=== PATIENT | male | born 1980 | race Caucasian/White ===

== ENCOUNTER 2024-08-07 07:04 | Observation (INO) ==
--- NOTE | 2024-08-07 07:27 | Emergency Department Note ---
History of Present Illness General Chief complaint: GI Assessment Stated complaint: BLOATING,WEAKNESS,LIGHTHEADED,DISORIENTED Time Seen by Provider: 08/07/24 07:11 History of Present Illness Maximum Pain Intensity: 4 This is a 44-year-old male that presents to the emergency department via private vehicle with complaints of "bloating, lightheadedness, disoriented, chest pressure". The patient states that around August 01 he began with abdominal bloating, diarrhea however over the past 2 days has been taking Gas-X and notes improvement of symptoms. However, he does note that today around 3 AM he began with some building pressure in the upper abdomen that he felt radiate into the chest and describes it as a chest pressure in the substernal region. He then began feeling a bit disoriented like he was lightheaded. No speech trouble. The patient notes history of similar eye which was evaluated here in the past but has never had any abdominal pain or bloating with the symptoms. Patient notes he is otherwise healthy. No pertinent past medical history. Does not take medicines on a regular basis. History of right sided hernia surgery in 1998 and left knee surgery. No known drug allergies. Patient does note that when he eats or drinks he is nauseated and then notes some discomfort and bloating in the abdomen. He notes decreased appetite over the past 2 days. Patient also notes recent dental extraction x 2 in the past few weeks resulting in oral antibiotics as well. Home Medications Medication Instructions Recorded Confirmed Type No Known Home Medications 08/07/24 08/07/24 History Allergies Allergy/AdvReac Type Severity Reaction Status Date / Time No Known Allergies Allergy Unverified 10/18/20 16:33 Past Med/Surg History Problem List Lightheadedness (Acute) Abdominal pain, epigastric (Acute) Diarrhea (Acute) Medical History Mild intermittent asthma Organic erectile dysfunction Essential hypertension Obstructive sleep apnea Fracture of tibial plafond Talus fracture T12 compression fracture Calcaneal fracture Hernia Surgical History (Updated 08/07/24 @ 14:51 by Dorys Louise PA-C) H/O inguinal hernia repair History of right knee surgery ORIF fracture H/O colonoscopy Social History Smoking Status: Never smoker Do You Dip or Chew Tobacco: Yes; Hx Alcohol Use: No Hx Substance Use: No Preferred Language: Occitan Feels Safe at Home: Yes Review of Systems A total of 10 systems reviewed and were otherwise negative Physical Exam Vital Signs Vital Signs - 24 hr 08/07/24 07:08 08/07/24 08:34 08/07/24 09:30 Temperature 36.0 C L Temperature Source Temporal Artery Scan Pulse Rate 89 81 73 Pulse Rate [Right Finger] Pulse Rate from SpO2 Sensor 72 Respiratory Rate 18 21 Respiratory Effort / Characteristics Respiratory Depth Respiratory Pattern Blood Pressure 167/112 H 129/82 Blood Pressure [Left Arm] Blood Pressure Mean 130 97 Blood Pressure Mean [Left Arm] Blood Pressure Position Sitting Pulse Oximetry 98 99 Oxygen Delivery Method Sepsis Recent Fever Within 48 Hours No Sepsis New/Unexplained Change in Mental Status No Sepsis Action Taken by Nursing No Action Required 08/07/24 09:57 08/07/24 10:30 08/07/24 10:57 Temperature Temperature Source Pulse Rate 72 77 Pulse Rate [Right Finger] 72 Pulse Rate from SpO2 Sensor 78 Respiratory Rate 16 21 15 Respiratory Effort / Characteristics Non-Labored Spontaneous Respiratory Depth Normal Respiratory Pattern Regular Blood Pressure 139/104 H Blood Pressure [Left Arm] 157/87 H Blood Pressure Mean 115 Blood Pressure Mean [Left Arm] 110 Blood Pressure Position Pulse Oximetry 97 98 98 Oxygen Delivery Method Room Air Sepsis Recent Fever Within 48 Hours Sepsis New/Unexplained Change in Mental Status Sepsis Action Taken by Nursing 08/07/24 11:01 08/07/24 11:30 08/07/24 12:38 Temperature Temperature Source Pulse Rate 66 70 Pulse Rate [Right Finger] Pulse Rate from SpO2 Sensor 67 Respiratory Rate 16 Respiratory Effort / Characteristics Respiratory Depth Respiratory Pattern Blood Pressure 125/84 136/88 Blood Pressure [Left Arm] Blood Pressure Mean 98 104 Blood Pressure Mean [Left Arm] Blood Pressure Position Pulse Oximetry 97 Oxygen Delivery Method Sepsis Recent Fever Within 48 Hours Sepsis New/Unexplained Change in Mental Status Sepsis Action Taken by Nursing VITAL SIGNS - Vital signs and nursing notes were reviewed. Stable and afebrile, hypertensive. GENERAL -44-year-old male appearing his stated age who is in no acute distress. Communicates well with provider and answers questions appropriately. SKIN - Without rashes. No meningeal or petechial rash. Mildly diaphoretic. HEAD - NC/AT. EYES - PERRL with EOMI bilaterally. Sclera anicteric. EARS - No deformities of external structures noted on gross examination bilaterally. NOSE - Midline and without cyanosis. No epistaxis or purulent drainage noted. MOUTH/OROPHARYNX - Without perioral cyanosis. NECK - Neck with FROM. No nuchal rigidity. LUNGS - CTA CARDIAC - RRR ABDOMEN - Abdominal contour normal without pulsations or visible masses. BS normoactive all four quadrants. There is mild epigastric abdominal tenderness. No palpable masses, hepatosplenomegaly, or ascites noted. EXTREMITIES - No clubbing or peripheral cyanosis. +5/5 strength noted in UE/LE bilaterally. NEUROLOGIC - Cranial nerves II through XII grossly intact. PSYCH -alert, oriented and pleasant on exam. Course Administered Medications Discontinued Medications Sodium Chloride (Nss) 1,000 mls @ 999 mls/hr IV .Q1H1M ONE Stop: 08/07/24 10:08 Last Infusion: 08/07/24 10:36 Dose: Infused Documented By: Admin: 08/07/24 09:27 Dose: 999 mls/hr Documented By: Famotidine (Pepcid 20mg Iv Push) 20 mg in 5 mls @ 2.5 mls/min IV NOW STA Stop: 08/07/24 09:47 Last Admin: 08/07/24 09:58 Dose: 2.5 mls/min Documented By: BETSY Ioversol (Optiray 320 125ml) 119 ml IV ONCE ONE Stop: 08/07/24 08:52 Last Admin: 08/07/24 08:52 Dose: 119 ml Documented By: SHAWNEE Medical Decision Making Laboratory Data 08/07/24 07:45 08/07/24 07:45 Lab Results 08/07/24 08/07/24 08/07/24 Range/Units 07:45 07:50 09:35 WBC 5.62 (4.8-10.8) K/ul RBC 5.15 (4.70-6.10) M/uL Hgb 15.5 (14.0-18.0) g/dl Hct 45.2 (42.0-52.0) % MCV 87.8 (80.0-100.0) fL MCH 30.1 (25.0-34.0) pg MCHC 34.3 (32.0-36.0) g/dL RDW Std Deviation 38.2 (36.4-46.3) fL RDW Coeff of Onel 11.8 (11.5-14.5) % Plt Count 177 (130-400) K/uL MPV 9.6 (9.4-12.4) fL Immature Gran % (Auto) 0.5 % Neut % (Auto) 57.0 % Lymph % (Auto) 29.5 % [place] % (Auto) 9.1 % Eos % (Auto) 3.2 % Baso % (Auto) 0.7 % Neut # (Auto) 3.20 (1.40-6.50) K/uL Lymph # (Auto) 1.66 (1.20-3.40) K/uL [place] # (Auto) 0.51 (0.11-0.59) K/uL Eos # (Auto) 0.18 (0.00-0.50) K/uL Baso # (Auto) 0.04 (0.00-0.20) K/uL Immature Gran # (Auto) 0.03 (0.01-0.20) K/uL PT Cancelled 11.3 INR Cancelled 1.0 APTT Cancelled 28 PTT Ratio Cancelled 1.0 Sodium 139 (136-145) mmol/L Potassium 3.6 (3.5-5.1) mmol/L Chloride 102 (98-107) mmol/L Carbon Dioxide 31 (21-32) mmol/L Anion Gap 6 (3-11) BUN 20 (6-23) mg/dl Creatinine 0.99 (0.6-1.4) mg/dl Est Cr Clr Drug Dosing 131.3 ml/min eGFR 96.93 BUN/Creatinine Ratio 20.2 H (10-20) Glucose 84 (70-99(Fasting)) mg/dl Calcium 9.2 (8.6-10.3) mg/dl Magnesium 1.9 (1.7-2.4) mg/dl Total Bilirubin 1.4 H (0.2-1.0) mg/dl AST 25 (13-39) U/L ALT 30 (7-52) U/L Alkaline Phosphatase 57 (34-104) U/L Troponin I High Sens 3.8 (0-20) pg/ml Total Protein 7.9 (6.0-8.3) gm/dl Albumin 4.6 (3.4-5.0) gm/dl Globulin 3.3 (2.5-4.0) gm/dl Albumin/Globulin Ratio 1.4 (0.9-2) Lipase 24 (11-82) U/L TSH 3.275 (0.300-4.500) uIu/ml Urine Color Urine Appearance (Clear) Urine pH (4.5-7.5) Ur Specific Philip (1.000-1.030) Urine Protein (Negative) Urine Glucose (UA) (Negative) Urine Ketones (Negative) Urine Blood (Negative) Urine Nitrite (Negative) Urine Bilirubin (Negative) Urine Urobilinogen (Negative) Ur Leukocyte Esterase (Negative) Stl C. cayetanensis PCR Not Detected (NotDetected) Stool Rotavirus A PCR Not Detected (NotDetected) Stl Adenov F 40/41 PCR Not Detected (NotDetected) Stool Astrovirus (PCR) Not Detected (NotDetected) Stool Campylobacter PCR Not Detected (NotDetected) Stl C. diff Tox B Gene Negative Cdiff Gene (Neg) Stool Cryptosporidium PCR Not Detected (NotDetected) Stl E.coli Shiga Tox PCR Not Detected (NotDetected) Stl Enterotoxigenic E PCR Not Detected (NotDetected) Stool EPEC (PCR) Not Detected (NotDetected) Stool EAEC (PCR) Not Detected (NotDetected) Stl E. histolytica PCR Not Detected (NotDetected) Stool Giardia Lamblia PCR Not Detected (NotDetected) Stool Salmonella PCR Not Detected (NotDetected) Stool Sapovirus (PCR) Not Detected (NotDetected) Stl P. shigelloides PCR Not Detected (NotDetected) Stl Shigella/EIEC PCR Not Detected (NotDetected) St Y.enterocolitica PCR Not Detected (NotDetected) Stool Vibrio (PCR) Not Detected (NotDetected) Stl Vibrio cholerae PCR Not Detected (NotDetected) Stl Norovirus GI/GII PCR Not Detected (NotDetected) 08/07/24 08/07/24 Range/Units 10:10 10:30 WBC (4.8-10.8) K/ul RBC (4.70-6.10) M/uL Hgb (14.0-18.0) g/dl Hct (42.0-52.0) % MCV (80.0-100.0) fL MCH (25.0-34.0) pg MCHC (32.0-36.0) g/dL RDW Std Deviation (36.4-46.3) fL RDW Coeff of Onel (11.5-14.5) % Plt Count (130-400) K/uL MPV (9.4-12.4) fL Immature Gran % (Auto) % Neut % (Auto) % Lymph % (Auto) % [place] % (Auto) % Eos % (Auto) % Baso % (Auto) % Neut # (Auto) (1.40-6.50) K/uL Lymph # (Auto) (1.20-3.40) K/uL [place] # (Auto) (0.11-0.59) K/uL Eos # (Auto) (0.00-0.50) K/uL Baso # (Auto) (0.00-0.20) K/uL Immature Gran # (Auto) (0.01-0.20) K/uL PT INR APTT PTT Ratio Sodium (136-145) mmol/L Potassium (3.5-5.1) mmol/L Chloride (98-107) mmol/L Carbon Dioxide (21-32) mmol/L Anion Gap (3-11) BUN (6-23) mg/dl Creatinine (0.6-1.4) mg/dl Est Cr Clr Drug Dosing ml/min eGFR BUN/Creatinine Ratio (10-20) Glucose (70-99(Fasting)) mg/dl Calcium (8.6-10.3) mg/dl Magnesium (1.7-2.4) mg/dl Total Bilirubin (0.2-1.0) mg/dl AST (13-39) U/L ALT (7-52) U/L Alkaline Phosphatase (34-104) U/L Troponin I High Sens 3.4 (0-20) pg/ml Total Protein (6.0-8.3) gm/dl Albumin (3.4-5.0) gm/dl Globulin (2.5-4.0) gm/dl Albumin/Globulin Ratio (0.9-2) Lipase (11-82) U/L TSH (0.300-4.500) uIu/ml Urine Color Yellow Urine Appearance Clear (Clear) Urine pH 5.5 (4.5-7.5) Ur Specific Philip > 1.045 H (1.000-1.030) Urine Protein Negative (Negative) Urine Glucose (UA) Negative (Negative) Urine Ketones Negative (Negative) Urine Blood Negative (Negative) Urine Nitrite Negative (Negative) Urine Bilirubin Negative (Negative) Urine Urobilinogen Negative (Negative) Ur Leukocyte Esterase Negative (Negative) Stl C. cayetanensis PCR (NotDetected) Stool Rotavirus A PCR (NotDetected) Stl Adenov F 40/41 PCR (NotDetected) Stool Astrovirus (PCR) (NotDetected) Stool Campylobacter PCR (NotDetected) Stl C. diff Tox B Gene (Neg) Stool Cryptosporidium PCR (NotDetected) Stl E.coli Shiga Tox PCR (NotDetected) Stl Enterotoxigenic E PCR (NotDetected) Stool EPEC (PCR) (NotDetected) Stool EAEC (PCR) (NotDetected) Stl E. histolytica PCR (NotDetected) Stool Giardia Lamblia PCR (NotDetected) Stool Salmonella PCR (NotDetected) Stool Sapovirus (PCR) (NotDetected) Stl P. shigelloides PCR (NotDetected) Stl Shigella/EIEC PCR (NotDetected) St Y.enterocolitica PCR (NotDetected) Stool Vibrio (PCR) (NotDetected) Stl Vibrio cholerae PCR (NotDetected) Stl Norovirus GI/GII PCR (NotDetected) Imaging Data Radiologist's Impression: Abdomen/Pelvis CT 08/07/24 07:37 CT OF THE ABDOMEN AND PELVIS WITH CONTRAST CLINICAL HISTORY: chest pressure, lightheaded, abdominal pain, diarrhea COMPARISON STUDY: CT of the abdomen and pelvis June 11, 2013. Right upper quadrant ultrasound August 07, 2016. TECHNIQUE: Following IV administration of 119 mL of Optiray, axial images of the abdomen and pelvis were obtained from the lung bases to the proximal femurs. Images were reviewed in the axial, sagittal, and coronal planes. IV contrast was administered without complication. Automated exposure control was utilized for the study. A dose lowering technique was utilized adhering to the principles of ALARA. FINDINGS: Lung bases are unremarkable. No pneumatosis, free air or portal venous gas is present. Left adrenal calcifications are unchanged. The liver, right adrenal gland, left kidney and pancreas are normal. Mild splenomegaly is unchanged. There is no biliary or pancreatic ductal dilatation. Subcentimeter hypodense right upper pole renal lesion is too small to characterize but favors a cyst. There is no hydronephrosis. Retroperitoneal venous collaterals are unchanged. Caliber and wall thickness of small and large bowel are normal. There is no evidence for a bowel obstruction. There is sigmoid diverticulosis without evidence for acute diverticulitis. The appendix is normal. There is no lymphadenopathy. Minimal mesenteric stranding is of doubtful significance. There is no lymphadenopathy. IMPRESSION: 1. No acute process within the abdomen or pelvis. 2. No bowel obstruction. No bowel wall thickening. 3. Colonic diverticulosis. No evidence for acute diverticulitis. ACT 112: Negative or not required by law. Electronically signed by: Jose Cruz Scott M.D. 08/07/2024 9:20 AM Chest CTA 08/07/24 07:37 CT ANGIOGRAPHY OF THE CHEST, PULMONARY EMBOLUS PROTOCOL CLINICAL HISTORY: Chest pressure. Lightheadedness. Evaluate for pulmonary embolus. COMPARISON STUDY: Chest CT October 04, 2023. TECHNIQUE: Following IV administration of 119 mL of Optiray, helical axial images of the chest were obtained utilizing the pulmonary embolus protocol. Maximal intensity projections and sagittal and coronal reformats were viewed on an independent 3D workstation. IV contrast was administered without complication. Automated exposure control was utilized for the study. A dose lowering technique was utilized adhering to the principles of ALARA. CT DOSE: 2493.94 mGy.cm FINDINGS: No central or lobar pulmonary emboli are identified. The remainder of the pulmonary arteries are suboptimally assessed due to suboptimal opacification. There is no thoracic aortic dissection. Size the heart is normal. No pneumothorax or pleural effusion is present. There is no consolidation to suggest pneumonia. No suspicious pulmonary nodules are present. Alveolar opacities within the left lower lobe on chest CT October 04, [address]23 resolved. Abdomen and pelvis CT will be reported separately. IMPRESSION: 1. No pulmonary emboli identified although exam compromised by suboptimal opacification. 2. No acute intrathoracic findings. ACT 112: Negative or not required by law. Electronically signed by: Jose Cruz Scott M.D. 08/07/2024 9:15 AM MDM Narrative Patient was seen and evaluated as above in room A03. Review was performed of triage nursing notes and vital signs. I did review pertinent previous visits and patient history. After obtaining a thorough history and physical examination the above work up was performed. Patient presents to us today for assessment of the above-stated complaint. On my exam the patient is clinically well-appearing and nontoxic. Mildly hypertensive. IV access with established. Labs were drawn. EKG was performed revealing normal sinus rhythm at a rate of 90 bpm per my interpretation. QTc 479. QRS 150. No ST elevation. Right bundle branch block noted. This was compared to the EKG performed earlier this year on October 04, 2023. Tracing is similar. Will proceed with CT scan of the chest, abdomen and pelvis to further assess the locations of the patient's pain today noting he does have chest pressure centrally located, lightheadedness with a feeling inside the chest, as well as the upper abdominal discomfort/bloating. IV fluids ordered for hydration noting fluid loss or diarrhea over the past several days. Labs reveal no leukocytosis or concerning anemia. No emergent metabolic disturbance. Mild elevation of BUN/creatinine ratio 20.2. Initial troponin returned negative making acute cardiac injury less likely, however will proceed with second troponin noting timing from onset of symptoms. Lipase normal. TSH was euthyroid state. C. difficile testing negative. Stool testing essentially returned negative. The CT scan of the chest, abdomen and pelvis was reviewed with the formal radiology report is as above and these were also essentially negative. Although I do suspect ACS to be unlikely, a second troponin will be performed. I did discuss presentation with the on-call slusher operator, Dr. Viera noting the patient's infrasternal discomfort and a presentation was diaphoretic with some lightheadedness. In the setting of 2 negative troponins, patient is felt to be well for echo stress test. Patient then underwent echo stress test and did receive a call back from Dr. Viera regarding the findings. No inducible ischemia upon cardiac testing today, however the patient did have reproduction of the upper abdominal discomfort during the stress test and at this time we will proceed with further evaluation and management in the inpatient setting. Case discussed with the hospitalist service. Please refer to further documentation regarding his stay. GCS: 15 In the evaluation and treatment of this patient the following differential diagnoses were entertained: Bowel obstruction, pancreatitis, cholecystitis, ACS, dissection, PE, diarrheal illness, among others. Impression & Plan Diarrhea, Abdominal pain, epigastric, Lightheadedness Discharge Plan Visit Data Chief Complaint: GI Assessment Stated Complaint: BLOATING,WEAKNESS,LIGHTHEADED,DISORIENTED ED Provider: Sandeep Vasquez ED Midlevel Provider: Mata Polo Discharge Problem: Diarrhea, Abdominal pain, epigastric, Lightheadedness Patient Disposition: Admitted As Inpatient Condition: Good Forms Stand Alone Forms: [facility] [employer] Prescriptions Prescriptions: No Action No Known Home Medications Referrals Referrals: PCP,NO [Primary Care Provider] -
[2024-08-07 08:02] LABS: Basophils # (auto) 0.04 K/uL (0.00-0.20); Basophils % (auto) 0.7 %; Eosinophils # (auto) 0.18 K/uL (0.00-0.50); Eosinophils % (auto) 3.2 %; Hematocrit (blood only) 45.2 % (42.0-52.0); Hemoglobin 15.5 g/dl (14.0-18.0); Immature Granulocytes # (auto) 0.03 K/uL (0.01-0.20); Immature Granulocytes % (auto) 0.5 %; Lymphocytes # (auto) 1.66 K/uL (1.20-3.40); Lymphocytes % (auto) 29.5 %; Mean Corpuscular Hemoglobin 30.1 pg (25.0-34.0); Mean Corpuscular Hgb Conc 34.3 g/dL (32.0-36.0); Mean Corpuscular Volume 87.8 fL (80.0-100.0); Mean Platelet Volume 9.6 fL (9.4-12.4); Monocytes # (auto) 0.51 K/uL (0.11-0.59); Monocytes % (auto) 9.1 %; Platelet Count 177 K/uL (130-400); RDW Coefficient of Variation 11.8 % (11.5-14.5); RDW Standard Deviation 38.2 fL (36.4-46.3); Red Blood Count 5.15 M/uL (4.70-6.10); White Blood Count 5.62 K/ul (4.8-10.8)
[2024-08-07 08:27] LABS: Albumin Globulin Ratio 1.4 (0.9-2); Albumin Level 4.6 gm/dl (3.4-5.0); BUN Creatinine Ratio 20.2 (10-20); Bilirubin,Total 1.4 mg/dl (0.2-1.0); Calcium 9.2 mg/dl (8.6-10.3); Creatinine Clr Calc Pharmacy 131.3 ml/min; Globulin 3.3 gm/dl (2.5-4.0); Magnesium 1.9 mg/dl (1.7-2.4); Potassium 3.6 mmol/L (3.5-5.1); Total Protein 7.9 gm/dl (6.0-8.3)
[2024-08-07 08:33] LABS: Troponin I High Sensitivity 3.8 pg/ml (0-20)
[2024-08-07 08:42] LABS: Thyroid Stimulating Hormone 3.275 uIu/ml (0.300-4.500)
[2024-08-07] MEDS: OPTIRAY 320 125ml IV ONE (08:52)
--- NOTE | 2024-08-07 09:16 | CT Scan Report ---
CT ANGIOGRAPHY OF THE CHEST, PULMONARY EMBOLUS PROTOCOL CLINICAL HISTORY: Chest pressure. Lightheadedness. Evaluate for pulmonary embolus. COMPARISON STUDY: Chest CT October 04, 2023. TECHNIQUE: Following IV administration of 119 mL of Optiray, helical axial images of the chest were o btained utilizing the pulmonary embolus protocol. Maximal intensity projections and sagittal and cor onal reformats were viewed on an independent 3D workstation. IV contrast was administered without co mplication. Automated exposure control was utilized for the study. A dose lowering technique was ut ilized adhering to the principles of ALARA. CT DOSE: 2493.94 mGy.cm FINDINGS: No central or lobar pulmonary emboli are identified. The remainder of the pulmonary arteri es are suboptimally assessed due to suboptimal opacification. There is no thoracic aortic dissection. Size the heart is normal. No pneumothorax or pleural effusion is present. There is no consolidation to suggest pneumonia. No suspicious pulmonary nodules are present. Alveolar opacities within the left lower lobe on chest CT October 04, 2023 resolved. Abdomen and pelvis CT will be reported separately . IMPRESSION: 1. No pulmonary emboli identified although exam compromised by suboptimal opacification. 2. No acute intrathoracic findings. ACT 112: Negative or not required by law. Electronically signed by: Jose Cruz Scott M.D. 08/07/2024 9:15 AM
--- NOTE | 2024-08-07 09:21 | CT Scan Report ---
CT OF THE ABDOMEN AND PELVIS WITH CONTRAST CLINICAL HISTORY: chest pressure, lightheaded, abdominal pain, diarrhea COMPARISON STUDY: CT of the abdomen and pelvis June 11, 2013. Right upper quadrant ultrasound Jul. TECHNIQUE: Following IV administration of 119 mL of Optiray, axial images of the abdomen and pelvis w ere obtained from the lung bases to the proximal femurs. Images were reviewed in the axial, sagittal, and coronal planes. IV contrast was administered without complication. Automated exposure control w as utilized for the study. A dose lowering technique was utilized adhering to the principles of ALAR A. FINDINGS: Lung bases are unremarkable. No pneumatosis, free air or portal venous gas is present. Left adrenal calcifications are unchanged. The liver, right adrenal gland, left kidney and pancreas are n ormal. Mild splenomegaly is unchanged. There is no biliary or pancreatic ductal dilatation. Subcentim eter hypodense right upper pole renal lesion is too small to characterize but favors a cyst. There is no hydronephrosis. Retroperitoneal venous collaterals are unchanged. Caliber and wall thickness of s mall and large bowel are normal. There is no evidence for a bowel obstruction. There is sigmoid diver ticulosis without evidence for acute diverticulitis. The appendix is normal. There is no lymphadenopa thy. Minimal mesenteric stranding is of doubtful significance. There is no lymphadenopathy. IMPRESSION: 1. No acute process within the abdomen or pelvis. 2. No bowel obstruction. No bowel wall thickening. 3. Colonic diverticulosis. No evidence for acute diverticulitis. ACT 112: Negative or not required by law. Electronically signed by: Jose Cruz Scott M.D. 08/07/2024 9:20 AM
[2024-08-07] MEDS: SODIUM CHLORIDE 0.9% 1,000 ML IV ONE (09:27)
[2024-08-07 09:46] LABS: Adenovirus F 40/41 PCR Not Detected (NotDetected); Astrovirus PCR Not Detected (NotDetected); Campylobacter PCR Not Detected (NotDetected); Cryptosporidium PCR Not Detected (NotDetected); Cyclospora cayetanensis PCR Not Detected (NotDetected); Entamoeba histolytica PCR Not Detected (NotDetected); Enteroaggregative E.coli(EAEC) Not Detected (NotDetected); Enteropathogenic E.coli (EPEC) Not Detected (NotDetected); Enterotoxigenic E.coli (ETEC) Not Detected (NotDetected); Giardia lamblia PCR Not Detected (NotDetected); Norovirus GI/GII PCR Not Detected (NotDetected); Plesiomonas shigelloides PCR Not Detected (NotDetected); Rotavirus A PCR Not Detected (NotDetected); Salmonella PCR Not Detected (NotDetected); Sapovirus PCR Not Detected (NotDetected); Shiga-like Toxin E.coli (STEC) Not Detected (NotDetected); Shigella/Enteroinvasive E.coli Not Detected (NotDetected); Vibrio cholerae PCR Not Detected (NotDetected); Vibrio species PCR Not Detected (NotDetected); Yersinia enterocolitica PCR Not Detected (NotDetected)
[2024-08-07] MEDS: FAMOTIDINE 20MG IV PUSH 20 MG/5 ML SYR IV STA (09:58)
--- NOTE | 2024-08-07 10:14 | Electrocardiogram Report ---
Test Reason : Blood Pressure : */* mmHG Vent. Rate : 90 BPM Atrial Rate : 90 BPM P-R Int : 144 ms QRS Dur : 150 ms QT Int : 392 ms P-R-T Axes : 56 23 5 degrees QTcB Int : 479 ms Normal sinus rhythm Right bundle branch block Abnormal ECG When compared with ECG of 04-Oct-2023 08:48, Left posterior fascicular block is no longer Present Confirmed by Sheldon Berrios ([id number]) on 08/07/2024 10:14:17 AM Referred By: REFERRED SELF Confirmed By: Sheldon Berrios
[2024-08-07 10:45] LABS: Partial Thromboplastin Time 28 Seconds (21-31); Prothrombin Time 11.3 Seconds (9.0-12.0)
[2024-08-07 10:47] LABS: Appearance Urine Clear (Clear); Bilirubin Urine Negative (Negative); Blood Urine Negative (Negative); Color Urine Yellow; Glucose Urine UA Negative (Negative); Ketones Urine Negative (Negative); Leukocyte Esterase Urine Negative (Negative); Nitrite Urine Negative (Negative); Protein Urine Negative (Negative); Specific Gravity Urine > 1.045 (1.000-1.030); Urobilinogen Urine Negative (Negative); pH Urine 5.5 (4.5-7.5)
--- NOTE | 2024-08-07 14:41 | History & Physical Report ---
Date of Service August 07, 2024 Assessment & Plan (1) Abdominal pain, epigastric: Plan: This is a 44 y/o male with hypertension (not on meds), YANIV (not on CPAP), and other history as outlined below who presented to the ED this morning with epigastric discomfort, bloating, and lightheadedness. Initial concern in the ED was for cardiac etiology so patient underwent exercise stress testing, which was negative for cardiac etiology. However, pt developed worsening epigastric pain during the test, which resolved with rest so he was referred for overnight observation on telemetry. Suspect GI etiology for symptoms considering recent NSAID use for teeth issues and daily EtOH use. - Observe on telemetry over night - Start IV PPI BID - Consult GI for additional recommendations - Labs in the AM - CBC, BMP, LFTs - Diet as tolerated - Cardio consult (2) Essential hypertension: Plan: Chronic, not currently on medications for this - stopped all of his meds over a month ago Will continue to monitor (3) Obstructive sleep apnea: Plan: Chronic, not on CPAP Defer to outpatient provider for management Plan Pt seen and reviewed with collaborating physician, Dr. Ram. Plan of care discussed and as outlined above. Code status: Full code DVT prophylaxis: SCDs. Possible d/c tomorrow pending no significant events overnight but will need outpatient f/u. Monitor response to PPI and consider transition to po at d/c. Bethany Louise PA-C History of Present Illness Chief Complaint: epigastric pain, bloating, abdominal cramping Primary Care Provider: Dr. Donta Dominguez This is a 44 y/o male with hypertension (not on meds), YANIV (not on CPAP), and other history as outlined below who presented to the ED this morning with epigastric discomfort, bloating, and lightheadedness. Pt reports that a week ago he had an episode of acid reflux but no specific trigger that he was aware of. Since that episode, he has been hhaving abdominal cramping, bloating, and diarrhea. He has a history of occasional acid reflux but this is always trigged by specific foods like red sauce and has not been this severe previously. Last night, the bloating and upper abdominal discomfort was particularly worse, especially with activity, so he tried some Gas-X with minimal relief. 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 The abdominal cramping seemed to ease off yesterday morning. He was having liquid diarrhea for the last week until last night when the stools became more semiformed. He denies melena or hematochezia. No vomiting or hematemesis. Since last week, eating anything caused abdominal cramping and bloating so his oral intake has been limited. He notes that he had two teeth pulled 2-3 weeks ago - was taking Tylenol and ibuprofen regularly for the pain before then. Since the procedure, pain has been controlled with narcotic, and he stopped taking the ibuprofen. He is not currently taking any prescription meds - stopped these about a month ago. 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 However, his last drink was four days ago. He denies shakiness or withdrawal symptoms. Family history is significant for his father having two heart procedures. He is unsure about family hx of GI conditions. Allergies Allergy/AdvReac Type Severity Reaction Status Date / Time No Known Allergies Allergy Unverified 10/18/20 16:33 Home Medications Medication Instructions Recorded Confirmed Type No Known Home Medications 08/07/24 08/07/24 History Past Med/Surg History Problem List Lightheadedness (Acute) Abdominal pain, epigastric (Acute) Diarrhea (Acute) Medical History Mild intermittent asthma Organic erectile dysfunction Essential hypertension Obstructive sleep apnea Fracture of tibial plafond Talus fracture T12 compression fracture Calcaneal fracture Hernia Surgical History H/O inguinal hernia repair History of right knee surgery ORIF fracture H/O colonoscopy Social History Smoking Status: Never smoker Do You Dip or Chew Tobacco: Yes; Hx Alcohol Use: Yes Alcohol type: beer and hard liquor Hx Substance Use: No Preferred Language: Andorran 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 Required: No Beliefs That Will Affect Care: None Current Living Situation: Alone Feels Safe at Home: Yes Safety Concerns: Feels Safe At This Time Review of Systems Review of Systems: All systems reviewed & are unremarkable except as noted in Subjective Physical Exam Physical Exam: General: awake, alert, NAD HEENT: no scleral icterus, moist oral mucosa Neck: supple, trachea midline Heart: RRR, No M/G/R Lungs: CTA bilaterally Abdomen: soft, mild epigastric tenderness, +BS, no guarding or rebound Extremities: no pedal edema, distal pulses intact and equal Skin: warm, dry, no jaundice or diaphoresis Neurologic: Ox3, no confusion or dysarthria, moving all extremities, no focal deficit Results & Data Results & Data Vital Signs (Past 12 Hours) Vital Signs Temp Pulse Pulse Resp BP BP Pulse Ox 08/07/24 12:38 70 08/07/24 11:30 66 16 136/88 97 08/07/24 11:01 125/84 08/07/24 10:57 77 15 98 08/07/24 10:30 72 21 139/104 H 98 08/07/24 09:57 72 16 157/87 H 97 08/07/24 09:30 73 21 129/82 99 08/07/24 08:34 81 08/07/24 07:08 36.0 C L 89 18 167/112 H 98 O2 Del Method 08/07/24 12:38 08/07/24 11:30 08/07/24 11:01 08/07/24 10:57 08/07/24 10:30 08/07/24 09:57 Room Air 08/07/24 09:30 08/07/24 08:34 08/07/24 07:08 Laboratory Results Lab Results 08/07/24 08/07/24 08/07/24 Range/Units 07:45 07:50 09:35 WBC 5.62 (4.8-10.8) K/ul RBC 5.15 (4.70-6.10) M/uL Hgb 15.5 (14.0-18.0) g/dl Hct 45.2 (42.0-52.0) % MCV 87.8 (80.0-100.0) fL MCH 30.1 (25.0-34.0) pg MCHC 34.3 (32.0-36.0) g/dL RDW Std Deviation 38.2 (36.4-46.3) fL RDW Coeff of Onel 11.8 (11.5-14.5) % Plt Count 177 (130-400) K/uL MPV 9.6 (9.4-12.4) fL Immature Gran % (Auto) 0.5 % Neut % (Auto) 57.0 % Lymph % (Auto) 29.5 % [place] % (Auto) 9.1 % Eos % (Auto) 3.2 % Baso % (Auto) 0.7 % Neut # (Auto) 3.20 (1.40-6.50) K/uL Lymph # (Auto) 1.66 (1.20-3.40) K/uL [place] # (Auto) 0.51 (0.11-0.59) K/uL Eos # (Auto) 0.18 (0.00-0.50) K/uL Baso # (Auto) 0.04 (0.00-0.20) K/uL Immature Gran # (Auto) 0.03 (0.01-0.20) K/uL PT Cancelled 11.3 INR Cancelled 1.0 APTT Cancelled 28 PTT Ratio Cancelled 1.0 Sodium 139 (136-145) mmol/L Potassium 3.6 (3.5-5.1) mmol/L Chloride 102 (98-107) mmol/L Carbon Dioxide 31 (21-32) mmol/L Anion Gap 6 (3-11) BUN 20 (6-23) mg/dl Creatinine 0.99 (0.6-1.4) mg/dl Est Cr Clr Drug Dosing 131.3 ml/min eGFR 96.93 BUN/Creatinine Ratio 20.2 H (10-20) Glucose 84 (70-99(Fasting)) mg/dl Calcium 9.2 (8.6-10.3) mg/dl Magnesium 1.9 (1.7-2.4) mg/dl Total Bilirubin 1.4 H (0.2-1.0) mg/dl AST 25 (13-39) U/L ALT 30 (7-52) U/L Alkaline Phosphatase 57 (34-104) U/L Troponin I High Sens 3.8 (0-20) pg/ml Total Protein 7.9 (6.0-8.3) gm/dl Albumin 4.6 (3.4-5.0) gm/dl Globulin 3.3 (2.5-4.0) gm/dl Albumin/Globulin Ratio 1.4 (0.9-2) Lipase 24 (11-82) U/L TSH 3.275 (0.300-4.500) uIu/ml Urine Color Urine Appearance (Clear) Urine pH (4.5-7.5) Ur Specific [place] (1.000-1.030) Urine Protein (Negative) Urine Glucose (UA) (Negative) Urine Ketones (Negative) Urine Blood (Negative) Urine Nitrite (Negative) Urine Bilirubin (Negative) Urine Urobilinogen (Negative) Ur Leukocyte Esterase (Negative) Stl C. cayetanensis PCR Not Detected (NotDetected) Stool Rotavirus A PCR Not Detected (NotDetected) Stl Adenov F 40/41 PCR Not Detected (NotDetected) Stool Astrovirus (PCR) Not Detected (NotDetected) Stool Campylobacter PCR Not Detected (NotDetected) Stl C. diff Tox B Gene Negative Cdiff Gene (Neg) Stool Cryptosporidium PCR Not Detected (NotDetected) Stl E.coli Shiga Tox PCR Not Detected (NotDetected) Stl Enterotoxigenic E PCR Not Detected (NotDetected) Stool EPEC (PCR) Not Detected (NotDetected) Stool EAEC (PCR) Not Detected (NotDetected) Stl E. histolytica PCR Not Detected (NotDetected) Stool Giardia Lamblia PCR Not Detected (NotDetected) Stool Salmonella PCR Not Detected (NotDetected) Stool Sapovirus (PCR) Not Detected (NotDetected) Stl P. shigelloides PCR Not Detected (NotDetected) Stl Shigella/EIEC PCR Not Detected (NotDetected) St Y.enterocolitica PCR Not Detected (NotDetected) Stool Vibrio (PCR) Not Detected (NotDetected) Stl Vibrio cholerae PCR Not Detected (NotDetected) Stl Norovirus GI/GII PCR Not Detected (NotDetected) 08/07/24 08/07/24 Range/Units 10:10 10:30 WBC (4.8-10.8) K/ul RBC (4.70-6.10) M/uL Hgb (14.0-18.0) g/dl Hct (42.0-52.0) % MCV (80.0-100.0) fL MCH (25.0-34.0) pg MCHC (32.0-36.0) g/dL RDW Std Deviation (36.4-46.3) fL RDW Coeff of Onel (11.5-14.5) % Plt Count (130-400) K/uL MPV (9.4-12.4) fL Immature Gran % (Auto) % Neut % (Auto) % Lymph % (Auto) % [place] % (Auto) % Eos % (Auto) % Baso % (Auto) % Neut # (Auto) (1.40-6.50) K/uL Lymph # (Auto) (1.20-3.40) K/uL [place] # (Auto) (0.11-0.59) K/uL Eos # (Auto) (0.00-0.50) K/uL Baso # (Auto) (0.00-0.20) K/uL Immature Gran # (Auto) (0.01-0.20) K/uL PT INR APTT PTT Ratio Sodium (136-145) mmol/L Potassium (3.5-5.1) mmol/L Chloride (98-107) mmol/L Carbon Dioxide (21-32) mmol/L Anion Gap (3-11) BUN (6-23) mg/dl Creatinine (0.6-1.4) mg/dl Est Cr Clr Drug Dosing ml/min eGFR BUN/Creatinine Ratio (10-20) Glucose (70-99(Fasting)) mg/dl Calcium (8.6-10.3) mg/dl Magnesium (1.7-2.4) mg/dl Total Bilirubin (0.2-1.0) mg/dl AST (13-39) U/L ALT (7-52) U/L Alkaline Phosphatase (34-104) U/L Troponin I High Sens 3.4 (0-20) pg/ml Total Protein (6.0-8.3) gm/dl Albumin (3.4-5.0) gm/dl Globulin (2.5-4.0) gm/dl Albumin/Globulin Ratio (0.9-2) Lipase (11-82) U/L TSH (0.300-4.500) uIu/ml Urine Color Yellow Urine Appearance Clear (Clear) Urine pH 5.5 (4.5-7.5) Ur Specific [place] > 1.045 H (1.000-1.030) Urine Protein Negative (Negative) Urine Glucose (UA) Negative (Negative) Urine Ketones Negative (Negative) Urine Blood Negative (Negative) Urine Nitrite Negative (Negative) Urine Bilirubin Negative (Negative) Urine Urobilinogen Negative (Negative) Ur Leukocyte Esterase Negative (Negative) Stl C. cayetanensis PCR (NotDetected) Stool Rotavirus A PCR (NotDetected) Stl Adenov F 40/41 PCR (NotDetected) Stool Astrovirus (PCR) (NotDetected) Stool Campylobacter PCR (NotDetected) Stl C. diff Tox B Gene (Neg) Stool Cryptosporidium PCR (NotDetected) Stl E.coli Shiga Tox PCR (NotDetected) Stl Enterotoxigenic E PCR (NotDetected) Stool EPEC (PCR) (NotDetected) Stool EAEC (PCR) (NotDetected) Stl E. histolytica PCR (NotDetected) Stool Giardia Lamblia PCR (NotDetected) Stool Salmonella PCR (NotDetected) Stool Sapovirus (PCR) (NotDetected) Stl P. shigelloides PCR (NotDetected) Stl Shigella/EIEC PCR (NotDetected) St Y.enterocolitica PCR (NotDetected) Stool Vibrio (PCR) (NotDetected) Stl Vibrio cholerae PCR (NotDetected) Stl Norovirus GI/GII PCR (NotDetected) Diagnostic Findings Abdomen/Pelvis CT 08/07/24 07:37 CT OF THE ABDOMEN AND PELVIS WITH CONTRAST CLINICAL HISTORY: chest pressure, lightheaded, abdominal pain, diarrhea COMPARISON STUDY: CT of the abdomen and pelvis June 11, 2013. Right upper quadrant ultrasound August 07, 2016. TECHNIQUE: Following IV administration of 119 mL of Optiray, axial images of the abdomen and pelvis were obtained from the lung bases to the proximal femurs. Images were reviewed in the axial, sagittal, and coronal planes. IV contrast was administered without complication. Automated exposure control was utilized for the study. A dose lowering technique was utilized adhering to the principles of ALARA. FINDINGS: Lung bases are unremarkable. No pneumatosis, free air or portal venous gas is present. Left adrenal calcifications are unchanged. The liver, right adrenal gland, left kidney and pancreas are normal. Mild splenomegaly is unchanged. There is no biliary or pancreatic ductal dilatation. Subcentimeter hypodense right upper pole renal lesion is too small to characterize but favors a cyst. There is no hydronephrosis. Retroperitoneal venous collaterals are unchanged. Caliber and wall thickness of small and large bowel are normal. There is no evidence for a bowel obstruction. There is sigmoid diverticulosis without evidence for acute diverticulitis. The appendix is normal. There is no lymphadenopathy. Minimal mesenteric stranding is of doubtful significance. There is no lymphadenopathy. IMPRESSION: 1. No acute process within the abdomen or pelvis. 2. No bowel obstruction. No bowel wall thickening. 3. Colonic diverticulosis. No evidence for acute diverticulitis. ACT 112: Negative or not required by law. Electronically signed by: Jose Cruz Scott M.D. 08/07/2024 9:20 AM Chest CTA 08/07/24 07:37 CT ANGIOGRAPHY OF THE CHEST, PULMONARY EMBOLUS PROTOCOL CLINICAL HISTORY: Chest pressure. Lightheadedness. Evaluate for pulmonary embolus. COMPARISON STUDY: Chest CT October 04, 2023. TECHNIQUE: Following IV administration of 119 mL of Optiray, helical axial images of the chest were obtained utilizing the pulmonary embolus protocol. Maximal intensity projections and sagittal and coronal reformats were viewed on an independent 3D workstation. IV contrast was administered without complication. Automated exposure control was utilized for the study. A dose lowering technique was utilized adhering to the principles of ALARA. CT DOSE: 2493.94 mGy.cm FINDINGS: No central or lobar pulmonary emboli are identified. The remainder of the pulmonary arteries are suboptimally assessed due to suboptimal opacification. There is no thoracic aortic dissection. Size the heart is normal. No pneumothorax or pleural effusion is present. There is no consolidation to suggest pneumonia. No suspicious pulmonary nodules are present. Alveolar o pacities within the left lower lobe on chest CT October 04, [address]23 resolved. Abdomen and pelvis CT will be reported separately. IMPRESSION: 1. No pulmonary emboli identified although exam compromised by suboptimal opacification. 2. No acute intrathoracic findings. ACT 112: Negative or not required by law. Electronically signed by: Jose Cruz Scott M.D. 08/07/2024 9:15 AM Medications Administered Discontinued Medications Sodium Chloride (Nss) 1,000 mls @ 999 mls/hr IV .Q1H1M ONE Stop: 08/07/24 10:08 Last Infusion: 08/07/24 10:36 Dose: Infused Documented By: Admin: 08/07/24 09:27 Dose: 999 mls/hr Documented By: Famotidine (Pepcid 20mg Iv Push) 20 mg in 5 mls @ 2.5 mls/min IV NOW STA Stop: 08/07/24 09:47 Last Admin: 08/07/24 09:58 Dose: 2.5 mls/min Documented By: BETSY Ioversol (Optiray 320 125ml) 119 ml IV ONCE ONE Stop: 08/07/24 08:52 Last Admin: 08/07/24 08:52 Dose: 119 ml Documented By: SHAWNEE Supervising Physician Co-Signing Physician Notes Attending Addendum: Case reviewed with the advanced practitioner. I have personally performed a history and physical examination on the patient. I have reviewed the advanced practitioner's documentation on the date of service referenced in note, and I agree with, and take responsibility for the plan of care. please refer to her notes for full details patient seen and examined, records reviewed by myself as well on exam, patient seen resting in bed, comfortable had some bloating after having dinner no other symptoms VS noted and reviewed oriented x 3 , not in distress, speaks in sentences with no effort nor accessory muscle use normal rate, regular rhythm, no murmurs clear breath sounds bilaterally non distended, soft, nontender no bipedal edema, erythema, warmth no neuro deficits all labs, imaging noted and reviewed ASSESSMENT AND PLAN Epigastric pain, possible peptic ulcer disease, gastritis Protonix IV twice daily GI consult N.p.o. postmidnight for possible EGD Chest pain, resolved Stress test negative for ischemia other diagnoses and plan of care as per advanced practitioner's notes Frederick Ram MD
[2024-08-07] MEDS ORDERED: ACETAMINOPHEN 325 MG TAB PO PRN (15:39)
[2024-08-07] MEDS ORDERED: ALUMINUM/MAGNESIUM SUSP 30 ML UDC PO PRN (15:39)
[2024-08-07] MEDS ORDERED: ONDANSETRON INJ 2 MG/ML 2 ML VIAL IV PRN (15:39)
[2024-08-07] MEDS: PANTOprazole 40 MG/10 ML SYR IV STA (16:00)
--- NOTE | 2024-08-07 17:57 | Cardiology Consultation ---
Date of Consultation August 07, 2024 Assessment & Plan (1) Abdominal pain, epigastric: The patient had felt improved after rest and hydration. He had noted to have an exercise stress echocardiogram. The left ventricular wall motion was normal at rest with normal echocardiographic response to exercise. Interpretation of the stress EKG was technically limited due to the presence of artifact and minimal equivocal ST segment changes in the setting of right bundle branch block were observed. The patient developed equivocal symptoms of mild epigastric discomfort at peak exercise that resolved early in the post-rest recovery interval. I have discussed this case with Mr. Polo of emergency medicine recommended ongoing admission for observation. Symptoms certainly sound atypical for angina and suggestive of GI etiology however he certainly has cardiac risk factors given his age, being overweight, and family history of coronary heart disease. Agree with tentative plan for trial of proton pump inhibitor therapy. Will check an additional troponin level in the morning as well as fasting lipid panel. Further recommendations to be forthcoming. History of Present Illness Attending Physician: Frederick Ram MD History of Present Illness Gisella Loyola is a 44 year old male seen in cardiology consultation per the request of Mata Polo PA-C of emergency medicine. Patient present to the emergency department in the diversional therapist's assistant hours this morning after having had a week of on and off symptoms including abdominal bloating diarrhea and belching. At 3 AM he had discomfort in his upper abdomen that progressed to epigastric and then substernal chest pressure he then developed profound heavy perspiration. He initially presented to the emergency department he was perspiring to such a degree that it was difficult to have the EKG leads adhered to his chest. CT of the chest abdomen and pelvis relatively unremarkable and high sensitive troponin was negative x 2. Patient felt improved after receiving Pepcid and normal saline IV fluid resuscitation. EKG revealed right bundle branch block which is a chronic finding for him. Family History Father with what sounds like to coronary stents and perhaps an aorta surgery or aortic valve procedure details not known to the patient Social History Non-smoker Allergies Allergy/AdvReac Type Severity Reaction Status Date / Time No Known Allergies Allergy Unverified 10/18/20 16:33 Home Medications Medication Instructions Recorded Confirmed Type No Known Home Medications 08/07/24 08/07/24 History Patient History Medical History Mild intermittent asthma Organic erectile dysfunction Essential hypertension Obstructive sleep apnea Fracture of tibial plafond Talus fracture T12 compression fracture Calcaneal fracture Hernia Surgical History H/O inguinal hernia repair History of right knee surgery ORIF fracture H/O colonoscopy Social History Smoking Status: Never smoker Do You Dip or Chew Tobacco: Yes; Hx Alcohol Use: No Hx Substance Use: No Preferred Language: Upper Sorbian Feels Safe at Home: Yes Review of Systems Review of Systems: All systems reviewed & are unremarkable except as noted in HPI & below Physical Exam Physical Exam: General: no acute distress and stated age Eyes: conjunctiva are pink and non-injected, sclera clear Neck: normal jugular venous pulse, no hepatojugular reflux Chest: normal shape and normal respiratory effort Lungs: clear to auscultation and percussion Cardiac Exam: - regular heart sounds, no murmurs, rubs, or gallops, no jugular venous distention Abdomen: abdomen soft, non-tender, no abnormal masses and no hepatosplenomegaly Musculoskeletal: no gait disturbance, no weakness Extremities: no edema and no cyanosis Neuro:awake, conversant, follows commands, no focal motor deficits Results & Data Vital Signs (Past 12 Hours) Vital Signs Temp Pulse Pulse Resp BP BP Pulse Ox 08/07/24 17:21 95 08/07/24 17:00 71 12 148/92 H 97 08/07/24 16:43 64 08/07/24 16:30 72 15 141/96 H 95 08/07/24 16:00 65 12 115/85 96 08/07/24 14:45 77 14 133/92 94 08/07/24 12:38 70 08/07/24 11:30 66 16 136/88 97 08/07/24 11:01 125/84 08/07/24 10:57 77 15 98 08/07/24 10:30 72 21 139/104 H 98 08/07/24 09:57 72 16 157/87 H 97 08/07/24 09:30 73 21 129/82 99 08/07/24 08:34 81 08/07/24 07:08 36.0 C L 89 18 167/112 H 98 O2 Del Method 08/07/24 17:21 Room Air 08/07/24 17:00 Room Air 08/07/24 16:43 08/07/24 16:30 Room Air 08/07/24 16:00 Room Air 08/07/24 14:45 08/07/24 12:38 08/07/24 11:30 08/07/24 11:01 08/07/24 10:57 08/07/24 10:30 08/07/24 09:57 Room Air 08/07/24 09:30 08/07/24 08:34 08/07/24 07:08 Laboratory Results Cardiac Enzymes 08/07/24 08/07/24 Range/Units 07:45 10:10 AST 25 (13-39) U/L Troponin I High Sens 3.8 3.4 (0-20) pg/ml Coagulation 08/07/24 08/07/24 Range/Units 07:45 09:35 PT Cancelled 11.3 APTT Cancelled 28 CBC 08/07/24 Range/Units 07:45 WBC 5.62 (4.8-10.8) K/ul RBC 5.15 (4.70-6.10) M/uL Hgb 15.5 (14.0-18.0) g/dl Hct 45.2 (42.0-52.0) % Plt Count 177 (130-400) K/uL Neut # (Auto) 3.20 (1.40-6.50) K/uL Lymph # (Auto) 1.66 (1.20-3.40) K/uL [place] # (Auto) 0.51 (0.11-0.59) K/uL Eos # (Auto) 0.18 (0.00-0.50) K/uL Baso # (Auto) 0.04 (0.00-0.20) K/uL Comprehensive Metabolic Panel 08/07/24 Range/Units 07:45 Sodium 139 (136-145) mmol/L Potassium 3.6 (3.5-5.1) mmol/L Chloride 102 (98-107) mmol/L Carbon Dioxide 31 (21-32) mmol/L BUN 20 (6-23) mg/dl Creatinine 0.99 (0.6-1.4) mg/dl Glucose 84 (70-99(Fasting)) mg/dl Calcium 9.2 (8.6-10.3) mg/dl AST 25 (13-39) U/L ALT 30 (7-52) U/L Alkaline Phosphatase 57 (34-104) U/L Total Protein 7.9 (6.0-8.3) gm/dl Albumin 4.6 (3.4-5.0) gm/dl Intake and Output 08/07/24 08/07/24 08/07/24 06:59 14:59 22:59 Intake Total 1000 / 1000 0 / 1000 Balance 1000 / 1000 0 / 1000 Intake: IV 1000 / 1000 Sodium Chloride 0.9% 1,000 ml @ 1000 / 1000 999 mls/hr IV .Q1H1M ONE Rx#: [id number] Oral 0 / 0 Other: Weight 124.9 kg Weight Measurement Method Built in [facility] Patient Weight 08/08/24 06:59 Weight 124.9 kg Diagnostic Findings EKG performed 08/07/2024 at 7:17 AM revealed normal sinus rhythm at 90 bpm, right bundle branch block
[2024-08-07] MEDS: PANTOprazole 40 MG/10 ML SYR IV SCH (19:49)
[2024-08-08 05:50] LABS: Basophils # (auto) 0.02 K/uL (0.00-0.20); Basophils % (auto) 0.4 %; Eosinophils # (auto) 0.14 K/uL (0.00-0.50); Eosinophils % (auto) 2.7 %; Hemoglobin 14.6 g/dl (14.0-18.0); Immature Granulocytes # (auto) 0.01 K/uL (0.01-0.20); Immature Granulocytes % (auto) 0.2 %; Lymphocytes # (auto) 1.16 K/uL (1.20-3.40); Lymphocytes % (auto) 22.3 %; Mean Corpuscular Hemoglobin 30.6 pg (25.0-34.0); Mean Corpuscular Hgb Conc 34.8 g/dL (32.0-36.0); Mean Corpuscular Volume 88.1 fL (80.0-100.0); Mean Platelet Volume 9.7 fL (9.4-12.4); Monocytes # (auto) 0.45 K/uL (0.11-0.59); Monocytes % (auto) 8.7 %; Neutrophils # (auto) 3.42 K/uL (1.40-6.50); Neutrophils % (auto) 65.7 %; Platelet Count 169 K/uL (130-400); RDW Coefficient of Variation 11.6 % (11.5-14.5); RDW Standard Deviation 37.3 fL (36.4-46.3); Red Blood Count 4.77 M/uL (4.70-6.10)
[2024-08-08 06:01] LABS: Albumin Level 4.2 gm/dl (3.4-5.0); BUN Creatinine Ratio 16.4 (10-20); Bilirubin Direct 0.2 mg/dl (0-0.2); Bilirubin,Total 1.5 mg/dl (0.2-1.0); Calcium 8.9 mg/dl (8.6-10.3); Chol HDL Ratio 4.7 (0-5); Creatinine Clr Calc Pharmacy 114.6 ml/min; Potassium 3.9 mmol/L (3.5-5.1); Total Protein 7.2 gm/dl (6.0-8.3)
[2024-08-08 06:06] LABS: Troponin I High Sensitivity 3.4 pg/ml (0-20)
[2024-08-08 07:59] VITALS: RESP 18
[2024-08-08] MEDS: SENNA 8.6 MG TAB PO SCH (09:54)
--- NOTE | 2024-08-08 10:51 | Gastrointestinal Consultation ---
Date of Consultation August 08, 2024 Assessment & Plan (1) Abdominal pain, epigastric: Vague epigastric discomfort that may be related to gastritis/ulcer from ibuprofen although it doesn't seem that he took that much to cause problems. He is feeling well enough to go home so I would send him home on PPI and then he can follow up if discomfort persists. At that time he can have EGD if necessary. I don't see the need to keep him over night for EGD as his symptoms are not that severe and labs are normal as long as cardiology doesn't feel further work up needed. His bloating could be related to his alcohol intake as well. History of Present Illness Reason for Consultation: epigastric pain Attending Physician: Alessio Greco MD History of Present Illness 44 year old man admitted with epigastric/chest pain of about a weeks duration. He tells me it started as heartburn and then included feeling bloated in his upper abdomen. He says he isn't used to his belly being as big as it is. He had some postprandial cramping with it that would last for a few seconds after eating. His main complaint is that he feels the bloating is getting worse and that it seemed to move into his chest which is why he came to ED. he had a stress test and was on a good incline when he developed epigastric discomfort. Cardiology is involved and does not feel this is RCA issues. He did take ibuprofen for three to four days (alternating with tylenol) about three weeks ago after having a tooth extraction. He has never had issues like this before. He does not smoke but he does drink six beers per day Allergies Allergy/AdvReac Type Severity Reaction Status Date / Time No Known Allergies Allergy Unverified 10/18/20 16:33 Home Medications Medication Instructions Recorded Confirmed Type No Known Home Medications 08/07/24 08/07/24 History Patient History Medical History Mild intermittent asthma Organic erectile dysfunction Essential hypertension Obstructive sleep apnea Fracture of tibial plafond Talus fracture T12 compression fracture Calcaneal fracture Hernia Surgical History H/O inguinal hernia repair History of right knee surgery ORIF fracture H/O colonoscopy Social History Smoking Status: Never smoker Do You Dip or Chew Tobacco: Yes; Hx Alcohol Use: Yes Alcohol type: beer and hard liquor Hx Substance Use: No Preferred Language: Latvian [employer] Required: No Beliefs That Will Affect Care: None Current Living Situation: Alone Feels Safe at Home: Yes Safety Concerns: Feels Safe At This Time Review of Systems Review of Systems: All systems reviewed & are unremarkable except as noted in HPI & below Physical Exam Physical Exam: Pleasant man in no distress Constitutional: WD/WN, vitals as above Neck: trachea midline, no thyromegaly Respiratory: normal respiratory effort, lungs clear to auscultation Cardiovascular: RRR, no murmur, no edema Gastrointestinal (Abdomen): normal bowel sounds, soft, nontender, no hepatosplenomegaly Results & Data Vital Signs (Past 12 Hours) Vital Signs Temp Pulse Pulse Pulse Resp BP Pulse Ox 08/08/24 07:58 36.6 C 66 18 136/85 96 08/08/24 05:45 74 08/08/24 04:03 36.7 C 75 16 128/89 96 08/07/24 23:09 36.6 C 67 18 137/76 93 08/07/24 22:57 75 O2 Del Method 08/08/24 07:58 Room Air 08/08/24 05:45 08/08/24 04:03 Room Air 08/07/24 23:09 Room Air 08/07/24 22:57 Laboratory Results 08/08/24 Range/Units 05:15 WBC 5.20 (4.8-10.8) K/ul RBC 4.77 (4.70-6.10) M/uL Hgb 14.6 (14.0-18.0) g/dl Hct 42.0 (42.0-52.0) % MCV 88.1 (80.0-100.0) fL MCH 30.6 (25.0-34.0) pg MCHC 34.8 (32.0-36.0) g/dL RDW Std Deviation 37.3 (36.4-46.3) fL RDW Coeff of Onel 11.6 (11.5-14.5) % Plt Count 169 (130-400) K/uL MPV 9.7 (9.4-12.4) fL Immature Gran % (Auto) 0.2 % Neut % (Auto) 65.7 % Lymph % (Auto) 22.3 % Jerome % (Auto) 8.7 % Eos % (Auto) 2.7 % Baso % (Auto) 0.4 % Neut # (Auto) 3.42 (1.40-6.50) K/uL Lymph # (Auto) 1.16 L (1.20-3.40) K/uL Jerome # (Auto) 0.45 (0.11-0.59) K/uL Eos # (Auto) 0.14 (0.00-0.50) K/uL Baso # (Auto) 0.02 (0.00-0.20) K/uL Immature Gran # (Auto) 0.01 (0.01-0.20) K/uL Sodium 139 (136-145) mmol/L Potassium 3.9 (3.5-5.1) mmol/L Chloride 105 (98-107) mmol/L Carbon Dioxide 30 (21-32) mmol/L Anion Gap 4 (3-11) BUN 18 (6-23) mg/dl Creatinine 1.10 (0.6-1.4) mg/dl Est Cr Clr Drug Dosing 114.6 ml/min eGFR 85.42 BUN/Creatinine Ratio 16.4 (10-20) Glucose 88 (70-99(Fasting)) mg/dl Calcium 8.9 (8.6-10.3) mg/dl Total Bilirubin 1.5 H (0.2-1.0) mg/dl Direct Bilirubin 0.2 (0-0.2) mg/dl AST 21 (13-39) U/L ALT 25 (7-52) U/L Alkaline Phosphatase 50 (34-104) U/L Troponin I High Sens 3.4 (0-20) pg/ml Total Protein 7.2 (6.0-8.3) gm/dl Albumin 4.2 (3.4-5.0) gm/dl Triglycerides 73 (0-150) mg/dl Cholesterol 154 (0-200) mg/dl LDL Cholesterol, Calc 106 mg/dl VLDL Cholesterol, Calc 15 (0-30) mg/dl HDL Cholesterol 33 mg/dl Cholesterol/HDL Ratio 4.7 (0-5) Diagnostic Findings Abdomen/Pelvis CT 08/07/24 07:37 CT OF THE ABDOMEN AND PELVIS WITH CONTRAST CLINICAL HISTORY: chest pressure, lightheaded, abdominal pain, diarrhea COMPARISON STUDY: CT of the abdomen and pelvis June 11, 2013. Right upper quadrant ultrasound August 07, 2016. TECHNIQUE: Following IV administration of 119 mL of Optiray, axial images of the abdomen and pelvis were obtained from the lung bases to the proximal femurs. Images were reviewed in the axial, sagittal, and coronal planes. IV contrast was administered without complication. Automated exposure control was utilized for the study. A dose lowering technique was utilized adhering to the principles of ALARA. FINDINGS: Lung bases are unremarkable. No pneumatosis, free air or portal venous gas is present. Left adrenal calcifications are unchanged. The liver, right adrenal gland, left kidney and pancreas are normal. Mild splenomegaly is unchanged. There is no biliary or pancreatic ductal dilatation. Subcentimeter hypodense right upper pole renal lesion is too small to characterize but favors a cyst. There is no hydronephrosis. Retroperitoneal venous collaterals are unchanged. Caliber and wall thickness of small and large bowel are normal. There is no evidence for a bowel obstruction. There is sigmoid diverticulosis without evidence for acute diverticulitis. The appendix is normal. There is no lymphadenopathy. Minimal mesenteric stranding is of doubtful significance. There is no lymphadenopathy. IMPRESSION: 1. No acute process within the abdomen or pelvis. 2. No bowel obstruction. No bowel wall thickening. 3. Colonic diverticulosis. No evidence for acute diverticulitis. ACT 112: Negative or not required by law. Electronically signed by: Jose Cruz Scott M.D. 08/07/2024 9:20 AM Chest CTA 08/07/24 07:37 CT ANGIOGRAPHY OF THE CHEST, PULMONARY EMBOLUS PROTOCOL CLINICAL HISTORY: Chest pressure. Lightheadedness. Evaluate for pulmonary embolus. COMPARISON STUDY: Chest CT October 04, 2023. TECHNIQUE: Following IV administration of 119 mL of Optiray, helical axial images of the chest were obtained utilizing the pulmonary embolus protocol. Maximal intensity projections and sagittal and coronal reformats were viewed on an independent 3D workstation. IV contrast was administered without complication. Automated exposure control was utilized for the study. A dose lowering technique was utilized adhering to the principles of ALARA. CT DOSE: 2493.94 mGy.cm FINDINGS: No central or lobar pulmonary emboli are identified. The remainder of the pulmonary arteries are suboptimally assessed due to suboptimal opacification. There is no thoracic aortic dissection. Size the heart is normal. No pneumothorax or pleural effusion is present. There is no consolidation to suggest pneumonia. No suspicious pulmonary nodules are present. Alveolar opacities within the left lower lobe on chest CT October 04, [address]23 resolved. Abdomen and pelvis CT will be reported separately. IMPRESSION: 1. No pulmonary emboli identified although exam compromised by suboptimal opacification. 2. No acute intrathoracic findings. ACT 112: Negative or not required by law. Electronically signed by: Jose Cruz Scott M.D. 08/07/2024 9:15 AM
[2024-08-08 11:55] VITALS: BP 128/58; TEMP 97.7; O2SAT 93
--- NOTE | 2024-08-08 14:39 | Discharge Summary ---
Date of Service August 08, 2024 Admission HPI Per Admitting Provider This is a 44 y/o male with hypertension (not on meds), YANIV (not on CPAP), and other history as outlined below who presented to the ED this morning with epigastric discomfort, bloating, and lightheadedness. Pt reports that a week ago he had an episode of acid reflux but no specific trigger that he was aware of. Since that episode, he has been hhaving abdominal cramping, bloating, and diarrhea. He has a history of occasional acid reflux but this is always trigged by specific foods like red sauce and has not been this severe previously. Last night, the bloating and upper abdominal discomfort was particularly worse, especially with activity, so he tried some Gas-X with minimal relief. 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 The abdominal cramping seemed to ease off yesterday morning. He was having liquid diarrhea for the last week until last night when the stools became more semiformed. He denies melena or hematochezia. No vomiting or hematemesis. Since last week, eating anything caused abdominal cramping and bloating so his oral intake has been limited. He notes that he had two teeth pulled 2-3 weeks ago - was taking Tylenol and ibuprofen regularly for the pain before then. Since the procedure, pain has been controlled with narcotic, and he stopped taking the ibuprofen. He is not currently taking any prescription meds - stopped these about a month ago. 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 However, his last drink was four days ago. He denies shakiness or withdrawal symptoms. Family history is significant for his father having two heart procedures. He is unsure about family hx of GI conditions. Admission Exam Per Admitting Provider General: awake, alert, NAD HEENT: no scleral icterus, moist oral mucosa Neck: supple, trachea midline Heart: RRR, No M/G/R Lungs: CTA bilaterally Abdomen: soft, mild epigastric tenderness, +BS, no guarding or rebound Extremities: no pedal edema, distal pulses intact and equal Skin: warm, dry, no jaundice or diaphoresis Neurologic: Ox3, no confusion or dysarthria, moving all extremities, no focal deficit Principal Diagnosis Epigastric pain, possibly secondary to gastritis/ PUD Discharge Exam General: awake, alert, NAD HEENT: no scleral icterus, moist oral mucosa Neck: supple Heart: RRR, No M/G/R Lungs: CTA bilaterally Abdomen: soft, mild epigastric tenderness, +BS, no guarding or rebound Extremities: no pedal edema, distal pulses intact and equal Skin: warm, dry, no jaundice or diaphoresis Neurologic: Ox3, no confusion or dysarthria, moving all extremities, no focal deficit Discharge Data Allergies Allergy/AdvReac Type Severity Reaction Status Date / Time No Known Allergies Allergy Unverified 10/18/20 16:33 Consultations 08/07/24 14:17 ED Decision to Admit Stat 08/07/24 15:39 Consult Cardiology Routine 08/07/24 16:44 Consult Gastroenterology Routine Ordered Studies 08/07/24 07:37 CT abd pelvis IV con only Stat FINDINGS: Lung bases are unremarkable. No pneumatosis, free air or portal venous gas is present. Left adrenal calcifications are unchanged. The liver, right adrenal gland, left kidney and pancreas are normal. Mild splenomegaly is unchanged. There is no biliary or pancreatic ductal dilatation. Subcentimeter hypodense right upper pole renal lesion is too small to characterize but favors a cyst. There is no hydronephrosis. Retroperitoneal venous collaterals are unchanged. Caliber and wall thickness of small and large bowel are normal. There is no evidence for a bowel obstruction. There is sigmoid diverticulosis without evidence for acute diverticulitis. The appendix is normal. There is no lymphaden opathy. Minimal mesenteric stranding is of doubtful significance. There is no lymphadenopathy. IMPRESSION: 1. No acute process within the abdomen or pelvis. 2. No bowel obstruction. No bowel wall thickening. 3. Colonic diverticulosis. No evidence for acute diverticulitis. CT angio chest PE protocol Stat FINDINGS: No central or lobar pulmonary emboli are identified. The remainder of the pulmonary arteries are suboptimally assessed due to suboptimal opacification. There is no thoracic aortic dissection. Size the heart is normal. No pneumothorax or pleural effusion is present. There is no consolidation to suggest pneumonia. No suspicious pulmonary nodules are present. Alveolar opacities within the left lower lobe on chest CT October 04, [address]23 resolved. Abdomen and pelvis CT will be reported separately. IMPRESSION: 1. No pulmonary emboli identified although exam compromised by suboptimal opacification. 2. No acute intrathoracic findings. Hospital Course (1) Abdominal pain, epigastric: This is a 44 y/o male with hypertension (not on meds), YANIV (not on CPAP), and other history as outlined below who presented to the ED this morning with epigastric discomfort, bloating, and lightheadedness. Initial concern in the ED was for cardiac etiology so patient underwent exercise stress testing, which was negative for cardiac etiology. However, pt developed worsening epigastric pain during the test, which resolved with rest so he was referred for overnight observation on telemetry. Suspect GI etiology for symptoms considering recent NSAID use for teeth issues and daily EtOH use. - Observe on telemetry over night - Start IV PPI BID - Consult GI for additional recommendations - Vague epigastric discomfort that may be related to gastritis/ulcer from ibuprofen although it doesn't seem that he took that much to cause problems. He is feeling well enough to go home so I would send him home on PPI and then he can follow up if discomfort persists. At that time he can have EGD if necessary. I don't see the need to keep him over n ight for EGD as his symptoms are not that severe and labs are normal as long as cardiology doesn't feel further work up needed. His bloating could be related to his alcohol intake as well. - Cardiology consulted - Repeat EKG this morning with stable findings. Patient without recurrent symptoms to suggest angina. Stress test findings felt to be reassuring. I agree with plans for proton pump inhibitor therapy. Follow-up with cardiology on an as-needed basis should future concerns arise (2) Essential hypertension: Chronic, not currently on medications for this - stopped all of his meds over a month ago Will continue to monitor (3) Obstructive sleep apnea: Chronic, not on CPAP Defer to outpatient provider for management Total Time Total Time Spent Total Time Spent (In Minutes): 40 Discharge Plan Discharge Items Patient Disposition: Home - Self-Care Reason For Visit: EPIGASTRIC PAIN Discharge Diagnosis: Epigastric pain, possibly secondary to gastritis/ PUD Condition on Discharge: Good Activity: Per Instructions section Non-emergency contact: Primary Care Provider and Progressive Care Unit Registered Nurse Call non-emergency contact if: you have any medication questions and your symptoms worsen Follow-up/Referrals: PCP,NO [Physician] - Diet: Regular Addtl Attending Provider Instructions: Follow up with primary care physician and 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 You should be seen by primary care physician within 1-2 weeks. Take pantoprazole 40 mg twice a day. Avoid NSAIDs such as ibuprofen, mortrin, etc. You can take tylenol for pain. Avoid alcohol , caffeine, and acidic foods such as tomato sauce, juices (cranberry, orange, apple, etc.). For constipation, you can take senna, colace or miralax. You can obtain these over the counter. Pending Studies at Discharge: No Stand-Alone Forms: My [facility], Smoking Cessation Medications and DC Order Prescriptions: New pantoprazole 40 mg tablet,delayed release (DR/EC) 40 mg PO BID 30 Days Qty: 60 0RF Discharge Orders: Discharge Order (Routine); Ordered 08/08/24 Ordered By: Alessio Greco Admission Data Admit Date/Time: 08/07/24 14:57 Attending Provider: Alessio Greco Admit Provider: Frederick Ram Primary Care Provider: Anshu Hernandez Other Providers: Frederick Ram; Shantanu Viera; Anderson Ugarte Other Interventions: Discharge Summary Assessment (RN) Last Done: 08/08/24 14:40
--- NOTE | 2024-08-08 14:52 | Cardiology Progress Note ---
Date of Service August 08, 2024 Assessment & Plan (1) Abdominal pain, epigastric: Plan: Repeat EKG this morning with stable findings. Repeat high since her troponin negative. Patient without recurrent symptoms to suggest angina. Stress test findings felt to be reassuring. I agree with plans for proton pump inhibitor therapy. Follow-up with cardiology on an as-needed basis should future concerns arise Admission and Anticipated Discharge Date Admission Date: August 07, 2024 Subjective Patient seen in cardiology follow-up. Rested well overnight last night. Mild ongoing epigastric discomfort on palpation on exam but overall feeling improved.Reveals sinus rhythm in the 80s. Physical Exam Physical Exam: General: no acute distress and stated age Eyes: conjunctiva are pink and non-injected, sclera clear Neck: normal jugular venous pulse, no hepatojugular reflux Chest: normal shape and normal respiratory effort Lungs: clear to auscultation and percussion Cardiac Exam: - regular heart sounds, no murmurs, rubs, or gallops, no jugular venous distention Abdomen: Mild epigastric discomfort reproduced on palpation Musculoskeletal: no gait disturbance, no weakness Extremities: no edema and no cyanosis Neuro:awake, conversant, follows commands, no focal motor deficits Psych: appropriate affect and insight. Results & Data Vital Signs (Past 12 Hours) Vital Signs Temp Pulse Pulse Pulse Resp BP Pulse Ox 08/08/24 14:40 36.5 C 67 18 128/58 L 93 08/08/24 11:54 36.5 C 67 18 128/58 L 93 08/08/24 07:58 36.6 C 66 18 136/85 96 08/08/24 05:45 74 08/08/24 04:03 36.7 C 75 16 128/89 96 O2 Del Method 08/08/24 14:40 08/08/24 11:54 Room Air 08/08/24 07:58 Room Air 08/08/24 05:45 08/08/24 04:03 Room Air Laboratory Results Cardiac Enzymes 08/08/24 Range/Units 05:15 AST 21 (13-39) U/L Troponin I High Sens 3.4 (0-20) pg/ml Lipids 08/08/24 Range/Units 05:15 Triglycerides 73 (0-150) mg/dl Cholesterol 154 (0-200) mg/dl HDL Cholesterol 33 mg/dl Cholesterol/HDL Ratio 4.7 (0-5) CBC 08/08/24 Range/Units 05:15 WBC 5.20 (4.8-10.8) K/ul RBC 4.77 (4.70-6.10) M/uL Hgb 14.6 (14.0-18.0) g/dl Hct 42.0 (42.0-52.0) % Plt Count 169 (130-400) K/uL Neut # (Auto) 3.42 (1.40-6.50) K/uL Lymph # (Auto) 1.16 L (1.20-3.40) K/uL [place] # (Auto) 0.45 (0.11-0.59) K/uL Eos # (Auto) 0.14 (0.00-0.50) K/uL Baso # (Auto) 0.02 (0.00-0.20) K/uL Comprehensive Metabolic Panel 08/08/24 Range/Units 05:15 Sodium 139 (136-145) mmol/L Potassium 3.9 (3.5-5.1) mmol/L Chloride 105 (98-107) mmol/L Carbon Dioxide 30 (21-32) mmol/L BUN 18 (6-23) mg/dl Creatinine 1.10 (0.6-1.4) mg/dl Glucose 88 (70-99(Fasting)) mg/dl Calcium 8.9 (8.6-10.3) mg/dl Direct Bilirubin 0.2 (0-0.2) mg/dl AST 21 (13-39) U/L ALT 25 (7-52) U/L Alkaline Phosphatase 50 (34-104) U/L Total Protein 7.2 (6.0-8.3) gm/dl Albumin 4.2 (3.4-5.0) gm/dl Lipid panel 08/08/2024: Total cholesterol 154 HDL 33 LDL 106 Intake and Output 08/07/24 08/08/24 08/08/24 22:59 06:59 14:59 Intake Total 0 / 1240 240 / 1240 Balance 0 / 1240 240 / 1240 Intake: Oral 0 / 240 240 / 240 Other: Other Intake Source sips Weight 124.466 kg 124.466 kg Weight Measurement Method Standing Scale Patient Weight 08/09/24 06:59 Weight 124.466 kg Diagnostic Findings EKG performed at 08/08/2024 and interpret independently revealed sinus rhythm at 64 bpm with incomplete right bundle branch block pattern and resultant repolarization abnormalities, stable findings
[2024-08-08 15:02] VITALS: PULSE 57
[2024-08-08] MEDS: SIMETHICONE 80 MG CHEW PO ONE (15:09)
[2024-08-08] MEDS: FAMOTIDINE 20MG IV PUSH 20 MG/5 ML SYR IV STA (15:09)
--- NOTE | 2024-08-08 23:23 | Electrocardiogram Report ---
Test Reason : Blood Pressure : */* mmHG Vent. Rate : 64 BPM Atrial Rate : 64 BPM P-R Int : 156 ms QRS Dur : 164 ms QT Int : 446 ms P-R-T Axes : 70 69 32 degrees QTcB Int : 460 ms Normal sinus rhythm Right bundle branch block Abnormal ECG When compared with ECG of 07-Aug-2024 07:17, No significant change Confirmed by Tyler Mckenzie ([id number]) on 08/08/2024 11:23:05 PM Referred By: REFERRED SELF Confirmed By: Tyler Mckenzie
== END 2024-08-08 15:46 | disposition home or self-care (01) ==
LOC: ED 07:04 → EDINP 07:04 → SUATTDRO 14:57 → 2W 15:39